=== PATIENT | female | born 1950 | race Caucasian/White ===

== ENCOUNTER 2018-02-07 08:55 | Inpatient (IN) | payer MEDICARE, OTHER ==
[~2018-02-07] VITALS: Ht 157.5 cm; Wt 63.5 kg
--- NOTE | 2018-02-07 08:55 | NUR ---
BIBRA 89, W C/O L ANKLE PAIN, +DEFORMITY S/P FALL, -KO , TO ER BED 10, HOOKED TO MONITOR, AWAITING MD DE LA ROSA
[2018-02-07] MEDS ORDERED: ONDANSETRON HCL/PF 4 MG/2 ML VIAL ONE (09:25)
[2018-02-07] MEDS ORDERED: HYDROMORPHONE 1 MG/1 ML DISP.SYRIN ONE ×2 (09:25→10:22)
[2018-02-07] MEDS ORDERED: HYDROMORPHONE INJ 2 MG/ML DISP.SYRIN IV ONE ×2 (09:30→10:30)
[2018-02-07] MEDS ORDERED: IV NS 0.9% 1,000 ML BAG IV ONE (09:30)
[2018-02-07] MEDS ORDERED: ONDANSETRON HCL/PF 4 MG/2 ML VIAL IVP ONE (09:30)
[2018-02-07 09:36] LABS: BASOPHILS # (AUTO) 0.1 /CMM (0.0-0.2); BASOPHILS % (AUTO) 0.6 % (0.0-2.0); EOSINOPHILS % (AUTO) 1.2 % (0.0-6.0); HEMATOCRIT 44 % (33-45); HEMOGLOBIN 15.2 g/dL (11.5-14.8); LYMPHOCYTES % (AUTO) 5.8 % (20.0-44.0); MEAN CORPUSCULAR HGB CONC 34 g/dl (31.0-36.0); MEAN CORPUSCULAR VOLUME 99 fL (82-100); MONOCYTES # (AUTO) 0.9 /CMM (0.1-1.30); MONOCYTES % (AUTO) 5.6 % (2.0-12.0); NEUTROPHILS # (AUTO) 14.7 /CMM (1.8-8.9); NEUTROPHILS % (AUTO) 86.8 % (43.0-81.0); PLATELET COUNT (AUTO) 304 /CMM (150-450); RED BLOOD CELL COUNT(AUTO) 4.48 MIL/uL (4.0-5.2); WHITE BLOOD COUNT (AUTO) 16.9 K/uL (4.3-11.0)
--- NOTE | 2018-02-07 09:38 | NUR ---
Patient transported for CT via gurney.
[2018-02-07 09:43] LABS: CALCIUM, SERUM 8.2 mg/dL (8.5-10.1); CREATININE 0.7 mg/dL (0.6-1.3)
[2018-02-07] MEDS ORDERED: PROG100C15 PO (09:43)
[2018-02-07] MEDS ORDERED: CLOP75TA15 PO (09:43)
[2018-02-07] MEDS ORDERED: FLUT16SP BNOSTRILS (09:43)
[2018-02-07] MEDS ORDERED: IBUP-1957 PO (09:43)
[2018-02-07] MEDS ORDERED: RANI150T8 PO (09:43)
[2018-02-07] MEDS ORDERED: ALBU18HF2 IH (09:43)
[2018-02-07] MEDS ORDERED: MONT10TA22 PO (09:43)
[2018-02-07] MEDS ORDERED: FLUT1DIS5 IH (09:43)
[2018-02-07] MEDS ORDERED: GABA-534 PO (09:43)
[2018-02-07] MEDS ORDERED: LEVO75TA7 PO (09:43)
[2018-02-07] MEDS ORDERED: OMEP20CA10 PO (09:43)
[2018-02-07] MEDS ORDERED: ACET-868 PO (09:43)
[2018-02-07 09:48] LABS: ALBUMIN 3.2 g/dL (3.4-5.0); BILIRUBIN,DIRECT 0.1 mg/dL (0.0-0.2); BILIRUBIN,TOTAL 0.4 mg/dL (0.2-1.0); TOTAL PROTEIN, SERUM 6.6 g/dL (6.4-8.2)
--- NOTE | 2018-02-07 10:11 | NUR ---
PAGED SCREEN PRINTER HELPER [facility] FOR CONSULT
--- NOTE | 2018-02-07 10:20 | NUR ---
VERBAL ORDER FROM DR RAMOS OF DILAUDID 1MG IV
--- NOTE | 2018-02-07 10:35 | NUR ---
CALLED NURSING SUP, REQUESTED MED SURG BED FOR THIS PATIENT.
--- NOTE | 2018-02-07 10:43 | NUR ---
[facility] FOLLOW UP - OFFICE STATES MD [place].
--- NOTE | 2018-02-07 10:59 | NUR ---
CALLED [facility]- ASTROBIOLOGIST MARILU GIRON WAS PAGED.
--- NOTE | 2018-02-07 11:05 | NUR ---
ADMIT TO ROOM 313-1 DX LEFT ANKLE FRACTURE ADMITTING MARILU GIRON
--- NOTE | 2018-02-07 11:36 | NUR ---
REPORT GIVEN TO TAYE HANNA
[2018-02-07 12:00] VITALS: BP 98/58
--- NOTE | 2018-02-07 12:00 | NUR ---
PT ON THE FLOOR , ADMITTED WITH DX LEFT ANKLE FRACTURE, ADM TO ROOM 313-1. FAMILY AT BEDSIDE. PT AWAKE A/O X4 , ABLE TO MAKE NEEDS KNOWN. NO S/S RESPIRATORY DISTRESS NOTED. VS ARE STABLE AND WNR. IV TO TH RIGHT WRIST 20G. PT ORIENTED TO UNIT AND EDUCATED TO USE CALL LIGHT. SAFETY PRECAUTIONS IN PLACE.
--- NOTE | 2018-02-07 12:30 | NUR ---
RECEIVED ORDERS FROM DR. GIRON.
--- NOTE | 2018-02-07 14:00 | NUR ---
RECEIVED ORDERS FROM : DILAUDID 0.5 Q3H PRN IV; BENADRYL 12.5 IV PRN WITH DILAUDID CARAFATE 1 G PO Q6H
[2018-02-07] MEDS: diphenhydrAMINE HCL 25 MG CAPSULE PO PRN (14:05)
[2018-02-07] MEDS ORDERED: Z GUARD REMEDY 2 OZ OINT TP PRN (15:00)
[2018-02-07] MEDS ORDERED: GABAPENTIN 300 MG CAPSULE PO PRN (15:00)
[2018-02-07] MEDS ORDERED: ACETAMINOPHEN 325 MG TABLET PO PRN (15:00)
[2018-02-07] MEDS ORDERED: FLUTICASONE/SALMETEROL DISKUS IH PRN (15:00)
[2018-02-07] MEDS: HYDROMORPHONE 1 MG/1 ML DISP.SYRIN IV PRN ×2 (15:16→20:10)
[2018-02-07] MEDS: SUCRALFATE 1 G TABLET PO SCH ×2 (15:45→23:48)
[2018-02-07] MEDS ORDERED: LIDOCAINE 1% INJ 50 ML MDV IJ STA (16:00)
--- NOTE | 2018-02-07 16:15 | NUR ---
DR. FONTAINE AT THE BEDSIDE
[2018-02-07] MEDS: FLUTICASONE/VILANTEROL 1 EACH BLST.W.DEV IH SCH (17:00)
--- NOTE | 2018-02-07 17:00 | NUR ---
PT REFUSED F/C INSERTION. AWARE.
[2018-02-07] MEDS: methylPREDNISolone SOD SUCC 125 MG/2ML VIAL IV SCH (17:38)
[2018-02-07] MEDS: diphenhydrAMINE HCL 50 MG/ML VIAL IV PRN (18:38)
--- NOTE | 2018-02-07 19:10 | NUR ---
PT AWAKE A/O X4 , ABLE TO MAKE NEEDS KNOWN. IV TO TH RIGHT WRIST 20G. PT NPO STATUS AFTER MIDNIGHT FOR SURGERY. SAFETY PRECAUTIONS IN PLACE, CALL LIGHT WITHIN REACH. WILL ENDORSE TO NEXT SHIFT FOR KAMARI.
--- NOTE | 2018-02-07 19:30 | NUR ---
MS/RN NOTES RECEIVED PT. LYING IN BED. PT. IS AWAKE, ALERT AND ORIENTED X4. BREATHING EVEN AND UNLABORED ON ROOM AIR. NO SOB, RESPIRATORY DISTRESS NOTED AT THIS TIME. PT. COMPLAINING OF PAIN 8/10 IN HER LEFT ANKLE. WILL ADMINISTER TO PT. PAIN MEDICATION ORDERED. PT. WITH RIGHT FOREARM 20 GAUGE IV SALINE LOCK PRESENT, PATENT AND INTACT. PT. WITH LEFT FOOT DRESSING PRESENT, CLEAN, DRY AND INTACT. PER DAYSHIFT NURSE PT. IS PENDING SURGERY TOMORROW AND WILL BE NPO AFTER MIDNIGHT. PT. WITH FAMILY MEMBERS PRESENT AT BEDSIDE. BED LOCKED AND IN LOWEST POSITION, SIDE RAILS UP X2, CALL LIGHT WITHIN REACH, WILL CONTINUE TO MONITOR.
[2018-02-07 20:00] VITALS: BP 124/62
[2018-02-07] MEDS: IPRATROPIUM NEB FS 0.5 MG/2.5 ML AMPUL.NEB NEB SCH ×2 (20:26→23:30)
[2018-02-07] MEDS: ALBUTEROL FS 2.5 MG/0.5 ML VIAL.NEB NEB SCH ×2 (20:26→23:30)
--- NOTE | 2018-02-07 21:40 | NUR ---
MS/RN NOTES PT. REQUESTING TO GO OUTSIDE AND SMOKE A CIGARETTE. PT. IS VERY ANXIOUS AND ADAMANT ABOUT IT. EDUCATED PT. ON NEGATIVE EFFECTS OF SMOKING AND PT. IS TO HAVE SURGERY TOMORROW. PT. VERBALIZED UNDERSTANDING AND STATED "I HAVE TO GO OUT AND SMOKE. I'LL BE OK". PT. SIGNED SMOKING CONSENT FORM, PLACED IN PT. CHART. PT. WAS BROUGHT OUTSIDE TO SMOKE VIA WHEELCHAIR ACCOMPANIED BY UNLEAVENED DOUGH MIXER AND PT. SON.
[2018-02-07] MEDS: IV NS 0.9% 1,000 ML IV PRN (22:14)
[2018-02-07] MEDS: MONTELUKAST SODIUM (10MG) 10 MG TABLET PO SCH (22:15)
[2018-02-07] MEDS: ZOLPIDEM TARTRATE 5 MG TABLET PO PRN (23:48)
[2018-02-08] MEDS: diphenhydrAMINE HCL 50 MG/ML VIAL IV PRN ×5 (00:21→23:50)
[2018-02-08] MEDS: IPRATROPIUM NEB FS 0.5 MG/2.5 ML AMPUL.NEB NEB SCH ×5 (03:30→20:31)
[2018-02-08] MEDS: ALBUTEROL FS 2.5 MG/0.5 ML VIAL.NEB NEB SCH ×5 (03:30→20:31)
[2018-02-08] MEDS: SUCRALFATE 1 G TABLET PO SCH ×4 (06:00→23:49)
[2018-02-08 06:31] LABS: BASOPHILS % (AUTO) 0.2 % (0.0-2.0); EOSINOPHILS % (AUTO) 0.3 % (0.0-6.0); HEMATOCRIT 37 % (33-45); HEMOGLOBIN 12.5 g/dL (11.5-14.8); LYMPHOCYTES % (AUTO) 7.9 % (20.0-44.0); MEAN CORPUSCULAR HGB CONC 34 g/dl (31.0-36.0); MEAN CORPUSCULAR VOLUME 99 fL (82-100); MONOCYTES # (AUTO) 0.8 /CMM (0.1-1.30); MONOCYTES % (AUTO) 6.8 % (2.0-12.0); NEUTROPHILS # (AUTO) 10.2 /CMM (1.8-8.9); NEUTROPHILS % (AUTO) 84.8 % (43.0-81.0); PLATELET COUNT (AUTO) 244 /CMM (150-450); RED BLOOD CELL COUNT(AUTO) 3.77 MIL/uL (4.0-5.2)
--- NOTE | 2018-02-08 06:45 | NUR ---
MS/RN NOTES PT. IS LYING IN BED RESTING. BREATHING EVEN AND UNLABORED ON ROOM AIR. NO SOB, RESPIRATORY DISTRESS OR COMPLAINTS OF PAIN NOTED AT THIS TIME. PT. WITH RIGHT FOREARM 20 GAUGE IV SALINE LOCK PRESENT, PATENT AND INTACT. PT. REMAINS NPO SINCE MIDNIGHT PENDING LEFT ANKLE SURGERY TODAY. PT. CONSENT SIGNED AND PLACED N CHART. ALL PT. NEEDS MET. BED LOCKED AND IN LOWEST POSITION, SIDE RAILS UP X2, CALL LIGHT WITHIN REACH, WILL ENDORSE TO DAYSHIFT NURSE FOR CONTINUITY OF CARE.
[2018-02-08 06:48] LABS: THYROID STIMULATING HORMONE 0.507 uIU/mL (0.358-3.74)
[2018-02-08 06:50] LABS: ALBUMIN 2.5 g/dL (3.4-5.0); BILIRUBIN,TOTAL 0.2 mg/dL (0.2-1.0); CREATININE 0.8 mg/dL (0.6-1.3); PHOSPHORUS 2.3 mg/dL (2.5-4.9); POTASSIUM 4.1 mmol/L (3.5-5.1); TOTAL PROTEIN, SERUM 5.5 g/dL (6.4-8.2)
[2018-02-08] MEDS: PANTOPRAZOLE 40 MG TABLET.DR PO SCH (07:30)
[2018-02-08] MEDS: LEVOTHYROXINE SODIUM 75 MCG TABLET PO SCH (07:30)
--- NOTE | 2018-02-08 07:36 | NUR ---
RN OPENING NOTES RECEIVED PATIENT IN BED ASLEEP, AROUSES EASILY. A/OX3, ABLE TO MAKE NEEDS KNOWN. NO ACUTE DISTRESS, NO SOB. DENIED PAIN OR DISCOMFORT AT THIS TIME. IV ACCESS INTACT AND PATENT. KEPT PATIENT SAFE AND COMFORTABLE. BED IN LOW/LOCKED POSITION, SIDERAILS UPX2, CALL LIGHT IN REACH. WILL CONTINUE TO MONITOR ACCORDINGLY.
--- NOTE | 2018-02-08 08:00 | NUR ---
RN NOTES REFUSED SKIN ASSESSMENT DUE TO SEVERE PAIN ON LEFT LEG. NO WOUND PER PATIENT
[2018-02-08] MEDS: methylPREDNISolone SOD SUCC 125 MG/2ML VIAL IV SCH ×2 (08:42→17:10)
[2018-02-08] MEDS: FLUTICASONE/VILANTEROL 1 EACH BLST.W.DEV IH SCH (08:48)
[2018-02-08] MEDS: IV NS 0.9% 1,000 ML IV PRN (10:26)
--- NOTE | 2018-02-08 10:30 | NUR ---
DR MARILU GIRON AT [facility] TALKING TO PATIENT.
[2018-02-08] MEDS: HYDROMORPHONE 1 MG/1 ML DISP.SYRIN IV PRN ×2 (10:37→22:31)
[2018-02-08] MEDS ORDERED: IV NS 0.9% 500 ML BAG IV ONE ×2 (12:20→23:00)
--- NOTE | 2018-02-08 12:33 | NUR ---
DR ARAUZ ON BEDSIDE. NOTIFIED BP= 80/55, PULSE 70. NS 500ML IV BOLUS ONE TIME ORDER PER DR ARAUZ. PATIENT ASYMPTOMATIC. WILL MONIOTR ACCORDINGLY.
--- NOTE | 2018-02-08 12:40 | NUR ---
PICKED UP FOR SURGERY BY OR TRANSPORT.
[2018-02-08] MEDS ORDERED: BUPIVACAINE 0.75% DEXT-PF 2 ML AMPUL ONE (13:18)
[2018-02-08] MEDS ORDERED: MIDAZOLAM HCL 2 MG/2ML VIAL ONE (13:18)
[2018-02-08] MEDS ORDERED: FENTANYL PF 100MCG/2ML AMPUL ONE (13:19)
[2018-02-08] MEDS ORDERED: MORPHINE SULFATE/PF 10 MG/10ML (1MG/ML) AMPUL ONE (13:19)
[2018-02-08] MEDS ORDERED: ANESTHESIA TRAY IN PYXIS 1 EA TRAY MC ONE (13:47)
[2018-02-08] MEDS ORDERED: BACITRACIN 50000 UNITS/VIAL ONE (14:08)
[2018-02-08] MEDS ORDERED: BUPIVACAINE MPF 0.75% 30 ML VIAL ONE (14:08)
[2018-02-08] MEDS ORDERED: BUPIVACAINE 0.5 % PF 150 MG/30 ML VIAL ONE (14:11)
[2018-02-08] MEDS ORDERED: K PHOS NEUTRAL 250 MG TABLET PO ONE ×2 (15:00→17:30)
--- NOTE | 2018-02-08 17:00 | NUR ---
CAME BACK FROM SURGERY IN STABLE CONDITION. VSS. WILL MONIOTR ACCORDINGLY.
[2018-02-08 17:05] VITALS: BP 92/60
[2018-02-08 17:30] VITALS: BP 90/55
[2018-02-08 18:30] VITALS: BP 91/53
--- NOTE | 2018-02-08 19:30 | NUR ---
RN CLOSING NOTES PATIENT IN STABLE CONDITION. ALL DUE MEDICATIONS ADMINISTERED ORDERED. ALL NEEDS ATTENDED AND PROVIDED. KEPT PATIENT SAFE AND COMFORTABLE. BED IN LOW/LOCKED POSITION, SIDERAILS UPX2, SEMFOWLERS, CALL LIGHT IN REACH. ENDORSED TO NIGHT RN FOR KAMARI
--- NOTE | 2018-02-08 19:35 | NUR ---
RN OPENING NOTES RECEIVED REPORT FROM DAYSHIFT RN. FOUND Pt AWAKE, RESTING IN BED. FAMILY VISITING AT BEDSIDE. NO S/S OF ACUTE DISTRESS OR SOB NOTED. Pt IS A/OX4, VERBAL, ABLE TO MAKE NEEDS KNOWN. ON TELE MONITOR FOR Q24HR ONLY PER POST-OP ORDER. TELE READING SR 80. IV ACCESS ON RHAND #22G; IVF NS @75ML/HR. SAFETY MEASURES IN PLACE. BED LOW, LOCKED, HOB ELEVATED, SIDE RAILS UP, CALL LIGHT AND BEDSIDE TABLE WITHIN REACH. WILL CONTINUE TO MONITOR Pt's CONDITION AND SAFETY THROUGHOUT THE NIGHT.
[2018-02-08 20:00] VITALS: BP 91/48
--- NOTE | 2018-02-08 20:25 | NUR ---
RN NOTES Pt's BP IS LOW. BP 77/52, HR 64, O2SAT 97%, R 20. Pt IS A/OX4 COMMUNICATING FINE. AFEBRILE. ASYMPTOMATIC. Pt IS C/O 10/10 PAIN ON LEFT FOOT. PAGED STAFF DEVELOPMENT COORDINATOR RN EPIC DR LOUISE TO INFORM HER OF Pt's BP. WAITING FOR CALL BACK.
--- NOTE | 2018-02-08 20:35 | NUR ---
RN NOTES RECEIVED CALL FROM PHARMACY TO INFORM THAT HOSPITAL IS CURRENTLY HAVING AN ANCEF SHORTAGE SO THEY CANNOT GIVE THE ANCEF FOR POST-OP. BUT SINCE Pt IS ALSO RECEIVING VANCO POST-OP, THEY SAID THE VANCO SHOULD BE OK FOR NOW. PHARM SUGGESTED TO CALL THE ONCALL ORTHO TO CLARIFY IF A DIFFERENT IV ABX SHOULD BE GIVEN IN REPLACEMENT OF THE ANCEF, OR IF VANCO WILL SUFFICE FOR NOW. WILL CALL ACUPRESSURIST ORTHO TO CLARIFY.
--- NOTE | 2018-02-08 20:40 | NUR ---
ARTS ADMINISTRATOR ORTHO:
--- NOTE | 2018-02-08 20:41 | NUR ---
RN NOTES CALLED THE [facility] LEADER [facility]THO MONIQUE [facility] TO INFORM THEM OF THE ANCEF SHORTAGE SITUATION. BUT NO ONE ANSWERED. PER BOX ORDER PERSON THEY SAID THEY LEFT MESSAGE TO CALL [facility] BACK.
--- NOTE | 2018-02-08 21:05 | NUR ---
RN NOTES SPOKE WITH PHARMACY ON THE PHONE AGAIN. PHARMACIST SAID THAT THEY CAN ONLY SPARE 2 DOSES OF THE ANCEF 2GM, BUT CANNOT GIVE THE ORDERED 4 DOSES.
[2018-02-08] MEDS ORDERED: HYDROMORPHONE INJ 0.5 MG/0.5 ML SYRINGE IV PRN (21:30)
[2018-02-08] MEDS ORDERED: diphenhydrAMINE HCL 50 MG/ML VIAL IV PRN (21:30)
[2018-02-08] MEDS ORDERED: NALOXONE HCL 0.4 MG/ML AMPUL IV PRN (21:30)
[2018-02-08 22:00] VITALS: BP 91/48
--- NOTE | 2018-02-08 22:05 | NUR ---
RN NOTES RECENT BP INCREASED FROM 77/52 TO 91/48, HR 78, O2 96% ON RA, R 18, T 98.2F. Pt IS ASYMPTOMATIC. PER Pt STATEMENT BASELINE BP AT HOME IS USUALLY IN THE 90s. SPOKE WITH DR LOUISE ON THE PHONE INFORMED OF Pt's LOW BP, BUT INFORMED HER THAT PER Pt STATEMENT Pt's BASELINE IS USUALLY IN THE LOW 90s. SINCE Pt IS ASYMPTOMATIC DR LOUISE SAID IT IS OK TO CONTINUE TO GIVE Pt THE DILAUDID SINCE SHE IS C/O SEVERE 10/10 PAIN S/P SURGERY ON LEFT FOOT. DR LOUISE ORDERED X1 BOLUS OF 500ML NS & ULTRAM 50MG Q8H SCHEDULED FOR BREAKTHROUGH PAIN. WILL CARRY OUT ORDERS.
--- NOTE | 2018-02-08 22:25 | NUR ---
RN NOTES SPOKE WITH CHECK CLERK MARI MASONS ON THE PHONE. INFORMED HIM OF THE ANCEF SHORTAGE SITUATION AT [facility], AND THAT PHARMACY WAS ONLY ABLE TO SPARE 2 DOSES OUT OF THE ORDERED 4 DOSES OF ANCEF 2GM FOR THE Pt. ASKED DARWIN IF THEY WANTED A DIFFERENT ABX TO REPLACE ANCEF, AND HE SAID JUST TO GIVE THE 2 DOSES OF ANCEF FOR NOW AND THAT THEY WILL FOLLOW UP IN THE MORNING FOR ANY CHANGES IN THE ORDER.
[2018-02-08] MEDS: diphenhydrAMINE HCL 25 MG CAPSULE PO PRN (22:31)
[2018-02-08] MEDS: ACETAMINOPHEN 325 MG TABLET PO SCH (22:32)
[2018-02-08] MEDS: MONTELUKAST SODIUM (10MG) 10 MG TABLET PO SCH (22:32)
[2018-02-08] MEDS: CEFAZOLIN 2 GM in IV D5W 50 ML IV SCH (22:32)
[2018-02-08] MEDS ORDERED: VANCOMYCIN 1 GM in IV D5W 250 ML IV ONE (23:00)
--- NOTE | 2018-02-08 23:10 | NUR ---
RN NOTES Pt IS C/O ACID REFLUX AND IS COMPLAINING THAT SHE IS BELCHING TOO MUCH, WHICH IS ALSO CAUSING HER TO HAVE MORE PAIN. SPOKE WITH DR LOUISE AGAIN ON THE PHONE IN REGARDS TO Pt's COMPLAINT ABOUT HER ACID REFLUX. DR LOUISE ORDERED PEPCID 20MG BID SCHEDULED. WILL CARRY OUT ORDERS.
[2018-02-08] MEDS: TRAMADOL HCL 50 MG TABLET PO SCH (23:49)
[2018-02-08] MEDS: FAMOTIDINE (20 MG) 20 MG TABLET PO SCH (23:49)
--- NOTE | 2018-02-09 | NUR ---
RN NOTES ADMINISTERED VANCO 1GM X1 DOSE FOR POST OP.
[2018-02-09] MEDS: IV NS 0.9% 1,000 ML IV PRN ×2 (00:09→09:29)
[2018-02-09] MEDS: ALBUTEROL FS 2.5 MG/0.5 ML VIAL.NEB NEB SCH ×7 (00:14→23:00)
[2018-02-09] MEDS: IPRATROPIUM NEB FS 0.5 MG/2.5 ML AMPUL.NEB NEB SCH ×7 (00:14→23:00)
[2018-02-09] MEDS: diphenhydrAMINE HCL 50 MG/ML VIAL IV PRN ×3 (03:23→10:02)
[2018-02-09] MEDS: ACETAMINOPHEN 325 MG TABLET PO SCH ×2 (03:23→09:03)
[2018-02-09] MEDS: HYDROMORPHONE 1 MG/1 ML DISP.SYRIN IV PRN ×2 (03:25→08:19)
--- NOTE | 2018-02-09 05:50 | NUR ---
RN NOTES URINE SAMPLE COLLECTED. INFORMED LAB.
[2018-02-09] MEDS: CEFAZOLIN 2 GM in IV D5W 50 ML IV SCH ×3 (06:58→21:43)
[2018-02-09] MEDS: SUCRALFATE 1 G TABLET PO SCH ×3 (06:59→17:42)
[2018-02-09 07:00] VITALS: BP 101/62
--- NOTE | 2018-02-09 07:00 | NUR ---
RN CLOSING NOTES NO SIGNIFICANT CHANGES IN Pt's CONDITION. Pt REMAINS STABLE PER BASELINE. NO S/S OF ACUTE DISTRESS OR SOB NOTED DURING THE NIGHT. Pt IS AWAKE IN BED. RESPIRATIONS EVEN AND UNLABORED. Pt HAD FIRST BM THIS AM POST-OP. ALL NEEDS MET AND ATTENDED TO. SAFETY MEASURES IN PLACE. WILL ENDORSE TO DAYSHIFT RN FOR Pt's KAMARI.
[2018-02-09] MEDS: TRAMADOL HCL 50 MG TABLET PO SCH ×2 (07:02→15:00)
[2018-02-09 07:15] LABS: BASOPHILS % (AUTO) 0.2 % (0.0-2.0); HEMATOCRIT 34 % (33-45); HEMOGLOBIN 11.4 g/dL (11.5-14.8); LYMPHOCYTES % (AUTO) 6.3 % (20.0-44.0); MEAN CORPUSCULAR HGB CONC 34 g/dl (31.0-36.0); MEAN CORPUSCULAR VOLUME 100 fL (82-100); MONOCYTES # (AUTO) 1.4 /CMM (0.1-1.30); MONOCYTES % (AUTO) 8.6 % (2.0-12.0); NEUTROPHILS # (AUTO) 13.6 /CMM (1.8-8.9); NEUTROPHILS % (AUTO) 84.9 % (43.0-81.0); PLATELET COUNT (AUTO) 246 /CMM (150-450); RED BLOOD CELL COUNT(AUTO) 3.39 MIL/uL (4.0-5.2); WHITE BLOOD COUNT (AUTO) 16.1 K/uL (4.3-11.0)
[2018-02-09 07:30] LABS: ALBUMIN 2.6 g/dL (3.4-5.0); BILIRUBIN,TOTAL 0.2 mg/dL (0.2-1.0); CALCIUM, SERUM 6.7 mg/dL (8.5-10.1); CREATININE 0.9 mg/dL (0.6-1.3); MAGNESIUM 1.8 mg/dL (1.8-2.4); PHOSPHORUS 2.4 mg/dL (2.5-4.9); POTASSIUM 3.7 mmol/L (3.5-5.1); TOTAL PROTEIN, SERUM 5.5 g/dL (6.4-8.2)
[2018-02-09 07:31] LABS: APPEARANCE,URINE CLEAR (CLEAR); BILIRUBIN,URINE NEGATIVE (NEGATIVE); BLOOD, URINE TRACE Ery/uL (NEGATIVE); COLOR,URINE YELLOW (YELLOW); KETONES,URINE NEGATIVE (NEGATIVE); LEUKOCYTE ESTERASE ,URINE NEGATIVE (NEGATIVE); NITRITE, URINE NEGATIVE (NEGATIVE); PH,URINE 6.5 (5.0-8.0); PROTEIN,URINE NEGATIVE (NEGATIVE); UGLUCOSE NEGATIVE (NEGATIVE); UROBILINOGEN,URINE 0.2 EU/dL (0.2)
--- NOTE | 2018-02-09 07:47 | NUR ---
MS/RN OPENING NOTE PATIENT IN BED IN STABLE CONDITION. A/O X 3. NO SIGNS OF ACUTE DISTRESS. NO COMPLAIN OF PAIN OR DISCOMFORT. ON TELE MONITOR FOR 24HRS S/P LEFT ANKLE OPEN REDUCTION AND INTERNAL FIXATION. TOLERATED WELL. ALL NEEDS ATTENDED TO. CALL LIGHT WITHIN REACH. WILL CONTINUE TO MONITOR TO ENSURE SAFETY.
[2018-02-09 07:53] LABS: BACTERIA,URINE Few /HPF (None Seen); SQUAMOUS EPITHELIAL CELL,UR Few /HPF (None Seen); WBC,URINE 0-2 /HPF (0-3)
[2018-02-09 08:00] VITALS: BP 92/52
[2018-02-09] MEDS: PANTOPRAZOLE 40 MG TABLET.DR PO SCH (08:19)
[2018-02-09] MEDS: LEVOTHYROXINE SODIUM 75 MCG TABLET PO SCH (08:19)
[2018-02-09] MEDS: FLUTICASONE/VILANTEROL 1 EACH BLST.W.DEV IH SCH (09:00)
[2018-02-09] MEDS: methylPREDNISolone SOD SUCC 125 MG/2ML VIAL IV SCH ×2 (09:03→17:00)
[2018-02-09] MEDS: FAMOTIDINE (20 MG) 20 MG TABLET PO SCH ×2 (09:03→16:58)
[2018-02-09] MEDS: CALCIUM CARB 600MG /VIT D 1 EACH TABLET PO SCH ×2 (09:12→16:58)
[2018-02-09] MEDS: FLUTICASONE PROPIONATE 16 GM BOTTLE NS PRN (09:12)
[2018-02-09] MEDS: NEUTRA PHOS 1 POWD.PACKET PO SCH ×2 (09:29→16:58)
[2018-02-09] MEDS: oxyCODONE IR immediate release 5 MG PO PRN (12:31)
[2018-02-09] MEDS: RIVAROXABAN 10 MG TABLET PO SCH (12:32)
--- NOTE | 2018-02-09 12:58 | NUR ---
MS/RN RECEIVED CALL FROM DR FONTAINE AND PER DR FONTAINE PLEASE ORDER TALL AIR CAST BOOT FOR PATIENT AND LEAVE AT BEDSIDE, HE WILL COME TOMORROW AND DO DRESSING CHANGE AND WILL PUT THE BOOT ON THE PATIENT. CALLED [facility]THO GROUP AND REQUEST FOR THE ORDER TO BE DELIVERED TODAY. SPOKE WITH SHAMIKA AND PATIENT INFORMATION PROVIDED. PATIENT MADE AWARE
[2018-02-09] MEDS: diphenhydrAMINE HCL 25 MG CAPSULE PO PRN (13:21)
--- NOTE | 2018-02-09 15:01 | NUR ---
MS/RN RECEIVED CALL FROM CHIP FROM [facility] AND PER CHIP THEY DON'T CARRY TALL AIR CAST BOOT BUT INSTEAD HAVE PNEUMATIC TALL CAMWALKER WALKING BOOT AND HAS SAME FUNCTION. SPOKE WITH DR FONTAINE AND MADE AWARE PER DR MINAL NEW TO HAVE PNEUMATIC TALL CAMWALKER INSTEAD. CHIP MADE AWARE AND PER CHIP, HE WILL DELIVER THE BOOT TODAY.
--- NOTE | 2018-02-09 15:28 | NUR ---
MS/RN SPOKE WITH DR FONTAINE AND MADE AWARE PATIENT'S ALLERGIC REACTION TO TYLENOL AND DILAUDID, ULTRAM BESIDES GIVING BENADRYL IV AND PO. STILL NOTED WITH REDNESS, HOT FLASHES, COMPLAIN OF DIZZINESS, SOB AND DIFFICULTY SWALLOWING WHEN EATING SOMETHING. PER DR FONTAINE PLEASE CALL HOSPITALIST AND NOTIFY THEM.
[2018-02-09] MEDS ORDERED: IV NS 0.9% 250 ML BAG IV ONE ×2 (15:30→17:00)
--- NOTE | 2018-02-09 15:32 | NUR ---
MS/RN SPOKE WITH DR MARILU GIRON AND NOTIFY PATIENT'S ALLERGIC REACTION TO TYLENOL AND DILAUDID, ULTRAM BESIDES GIVING BENADRYL IV AND PO. STILL NOTED WITH REDNESS, HOT FLASHES, COMPLAIN OF DIZZINESS, SOB AND DIFFICULTY SWALLOWING WHEN EATING SOMETHING. ALSO NOTED WITH LOW BP OF 82/50, 76. PER DR GIRON STOP ALL PAIN MEDICATION AND START MORPHINE 4MG IV Q 3 HR PRN. GIVE IV NS 250ML BOLUS X 1 NOW. PATIENT MADE AWARE.
[2018-02-09 16:00] VITALS: BP 83/49
[2018-02-09] MEDS ORDERED: IV NS 0.9% 250 ML IV ONE (16:00)
--- NOTE | 2018-02-09 16:45 | NUR ---
MS/RN SEEN AND EXAMINED BY DR MARILU GIRON. DR MARILU GIRON NOTED PATIENT BP 92/50 AT THIS TIME, POST IV BOLUS OF NS 250ML. PER DR MARILU GIRON PLEASE GIVE ANOTHER IV BOLUS 250ML X 1 AND GIVE SOLU-MEDROL 1254MG IV PUSH X 1 NOW. HOLD SCHEDULE SOLUMEDROL 60MG FOR 5PM.
[2018-02-09] MEDS ORDERED: methylPREDNISolone SOD SUCC 125 MG/2ML VIAL IV ONE (17:00)
--- NOTE | 2018-02-09 17:00 | NUR ---
MS/RN PNEUMATIC TALL CAMWALKER BOOT DELIVERED AND IS IN PATIENT'S ROOM. DR FONTAINE WILL DO DRESSING CHANGE TOMORROW AND WILL PUT THE BOOT ON.
--- NOTE | 2018-02-09 17:00 | NUR ---
MS/RN SPOKE WITH MARILU GIRON AND NOTIFY PER PHARM PATIENT ALLERGIC TO HYDROCODONE AND MIGHT HAVE REACTION FROM MORPHINE PER MARILU GIRON OKAY TO GIVE MORPHINE. PHARMACIST MARILU MADE AWARE.
--- NOTE | 2018-02-09 17:30 | NUR ---
MS/RN S/P IV BOLUS BP 92/55.
--- NOTE | 2018-02-09 18:32 | NUR ---
MS/RN ACCORDING TO PATIENT, SHE TAKES DAILY DULCOLAX SOFT GEL AT HOME. LAST TAKEN ON SUNDAY NIGHT AND HER BOWEL PATTERN IS 2 TO 3 TIMES A DAY LOOSE GREENISH COLOR STOOL. DR MARILU GIRON AWARE WITH ORDERS TO RORY ROLON STOOL Addendum: 02/09/18 at 1837 by JERRY CALDWELL RN Amended: Links added.
--- NOTE | 2018-02-09 18:41 | NUR ---
MS/RN SPOKE WITH DR MARILU GIRON AND NOTIFY PATIENT'S CONDITION OF DIFFICULTY SWALLOWING MEDICATION AND PATIENT COMPLAINING IT GET STUCK ABOVE HER EPIGASTRIC AREA, ALSO ANY THING SHE TAKES P.O. SHE FEELS LIKE IT GET STUCK ABOVE EPIGASTRIC AREA. ALSO MADE AWARE REGARDING BP STILL NOTED 92/55 POST IV NS BOLUS AND NS RUNNING AT 75MLS/HR. A/O X 4. NO SIGNS OF ACUTE DISTRESS. PER DR MARILU GIRON JUST TO KEEP MONITORING THE PATIENT AT THIS TIME. IF SHE REFUSE TO TAKE PO MEDS OR REFUSE PO INTAKE PLEASE DOCUMENT AND CONTINUE TO MONITOR WILL ENDORSE TO NEXT SHIFT FOR CONTINUITY OF CARE.
--- NOTE | 2018-02-09 19:40 | NUR ---
RN OPENING NOTES RECEIVED REPORT FROM DAYSORFT JACQUES EDWARDS. FOUND Pt AWAKE, RESTING IN BED. FAMILY VISITING AT BEDSIDE. NO S/S OF ACUTE DISTRESS OR SEVERE SOB NOTED. Pt IS A/OX4, VERBAL, ABLE TO MAKE NEEDS KNOWN. IV ACCESS ON RHAND #22G; IVF NS @75ML/HR. SAFETY MEASURES IN PLACE. BED LOW, LOCKED, HOB ELEVATED, SIDE RAILS UP, CALL LIGHT AND BEDSIDE TABLE WITHIN REACH. WILL CONTINUE TO MONITOR Pt's CONDITION AND SAFETY THROUGHOUT THE NIGHT.
[2018-02-09] MEDS: MONTELUKAST SODIUM (10MG) 10 MG TABLET PO SCH (21:43)
[2018-02-09] MEDS: ONDANSETRON HCL/PF 4 MG/2 ML VIAL IVP PRN (21:43)
[2018-02-09] MEDS: MORPHINE SULFATE INJ 4 MG/ML DISP.SYRIN IV PRN (21:44)
[2018-02-09 21:54] VITALS: BP 101/62
--- NOTE | 2018-02-09 22:00 | NUR ---
RN NOTES IV ACCESS ON RHAND BECAME DISLODGED WHILE Pt WAS TRYING TO GO TO THE [facility]. INSERTED NEW IV ACCESS ON LFA #22G.
--- NOTE | 2018-02-09 22:05 | NUR ---
RN NOTES DVT PUMP PLACED ON RT LEG ONLY.
[2018-02-10] MEDS: SUCRALFATE 1 G TABLET PO SCH ×5 (01:57→23:31)
[2018-02-10] MEDS: IPRATROPIUM NEB FS 0.5 MG/2.5 ML AMPUL.NEB NEB SCH ×6 (03:30→23:42)
[2018-02-10] MEDS: ALBUTEROL FS 2.5 MG/0.5 ML VIAL.NEB NEB SCH ×6 (03:30→23:42)
[2018-02-10] MEDS: IV NS 0.9% 1,000 ML IV PRN (05:51)
--- NOTE | 2018-02-10 06:49 | NUR ---
RN CLOSING NOTES NO SIGNIFICANT CHANGES IN Pt's CONDITION. Pt REMAINS STABLE PER BASELINE. Pt IS AWAKE, RESTING IN BED. DRINKING COFFEE. NO S/S OF ACUTE DISTRESS OR SOB NOTED. RESPIRATIONS EVEN AND UNLABORED. ALL NEEDS MET AND ATTENDED TO. SAFETY MEASURES IN PLACE. WILL ENDORSE TO DAYSHIFT RN FOR Pt's KAMARI.
[2018-02-10 06:51] LABS: BASOPHILS % (AUTO) 0.1 % (0.0-2.0); EOSINOPHILS % (AUTO) 0.1 % (0.0-6.0); HEMATOCRIT 33 % (33-45); HEMOGLOBIN 11.1 g/dL (11.5-14.8); LYMPHOCYTES # (AUTO) 1.1 /CMM (0.8-4.8); LYMPHOCYTES % (AUTO) 7.1 % (20.0-44.0); MEAN CORPUSCULAR HGB CONC 34 g/dl (31.0-36.0); MEAN CORPUSCULAR VOLUME 100 fL (82-100); MONOCYTES # (AUTO) 1.2 /CMM (0.1-1.30); MONOCYTES % (AUTO) 8.1 % (2.0-12.0); NEUTROPHILS # (AUTO) 12.6 /CMM (1.8-8.9); NEUTROPHILS % (AUTO) 84.6 % (43.0-81.0); PLATELET COUNT (AUTO) 239 /CMM (150-450); RED BLOOD CELL COUNT(AUTO) 3.32 MIL/uL (4.0-5.2); WHITE BLOOD COUNT (AUTO) 14.9 K/uL (4.3-11.0)
--- NOTE | 2018-02-10 07:00 | NUR ---
RN NOTES CURRENT BP 104/71, HR 71, R 18, O2 96% ON RA
[2018-02-10 07:05] LABS: CALCIUM, SERUM 7.3 mg/dL (8.5-10.1); CREATININE 0.7 mg/dL (0.6-1.3); POTASSIUM 3.6 mmol/L (3.5-5.1)
[2018-02-10] MEDS: PANTOPRAZOLE 40 MG TABLET.DR PO SCH (07:09)
[2018-02-10] MEDS: LEVOTHYROXINE SODIUM 75 MCG TABLET PO SCH (07:09)
--- NOTE | 2018-02-10 07:40 | NUR ---
MS RN OPENING NOTES RECEIVED PT LAYING IN BED. PT IS A/O X4, AFEBRILE. RESPIRATIONS ARE EVEN AND UNLABORED, NOT IN ANY ACUTE DISTRESS NOTED. PT DENIES C/O HEADACHE BUT IS TOLERABLE, NO C/O SOB, N/V. IV SITE IS INTACT TO LFA, NO INFILTRATION NOTED. DRESSING KEPT CLEAN AND DRY. SAFETY MEASURES ARE IN PLACE. INSTRUCTED PT TO USE CALL LIGHT WHEN ASSISTANCE IS NEEDED, CALL LIGHT IS LEFT WITHIN REACH. WILL CONTINUE TO MONITOR THROUGHOUT SHIFT FOR CONTINUITY OF CARE.
[2018-02-10 08:00] VITALS: BP 106/66
[2018-02-10] MEDS: FAMOTIDINE (20 MG) 20 MG TABLET PO SCH ×2 (08:20→17:11)
[2018-02-10] MEDS: CALCIUM CARB 600MG /VIT D 1 EACH TABLET PO SCH ×2 (08:20→17:11)
[2018-02-10] MEDS: ONDANSETRON HCL/PF 4 MG/2 ML VIAL IVP PRN (08:21)
[2018-02-10] MEDS: methylPREDNISolone SOD SUCC 125 MG/2ML VIAL IV SCH ×2 (08:21→17:11)
[2018-02-10] MEDS: MORPHINE SULFATE INJ 4 MG/ML DISP.SYRIN IV PRN ×3 (08:21→19:57)
[2018-02-10] MEDS: FLUTICASONE PROPIONATE 16 GM BOTTLE NS PRN (09:07)
[2018-02-10] MEDS: diphenhydrAMINE HCL 50 MG/ML VIAL IV PRN (10:10)
[2018-02-10] MEDS: FLUTICASONE/VILANTEROL 1 EACH BLST.W.DEV IH SCH (10:10)
[2018-02-10] MEDS ORDERED: MENTHOL/CETYLPYRD (CEPACOL) 1 LOZ LOZENGE PO PRN ×2 (11:00→11:30)
[2018-02-10] MEDS: RIVAROXABAN 10 MG TABLET PO SCH (12:08)
--- NOTE | 2018-02-10 12:30 | NUR ---
MS RN NOTES-- PER DR. FONTAINE, WILL CHANGE DRESSING AND APPLY TALL BOOT ON SUNDAY.
[2018-02-10 16:00] VITALS: BP 113/62
--- NOTE | 2018-02-10 18:35 | NUR ---
MS RN CLOSING NOTES ALL DUE MEDS GIVEN, NEEDS MET AND RENDERED. PT REMAINS A/O X4, AFEBRILE RESPIRATIONS ARE EVEN AND UNLABORED, NOT IN ANY ACUTE DISTRESS NOTED. DENIES ANY CHEST PAIN, SOB,N/V. IV SITE TO RFA INTACT, NO INFILTRATION NOTED. DRESSING KEPT CLEAN AND DRY. SAFETY MEASURES ARE IN PLACE. BED IS IN ITS LOCKED AND LOWEST POSITION. REMINDED PT TO USE CALL LIGHT WHEN ASSISTANCE IS NEEDED, CALL LIGHT IS LEFT WITHIN REACH. WILL ENDORSE TO NEXT SHIFT FOR CONTINUITY OF CARE.
[2018-02-10 20:00] VITALS: BP 121/56
--- NOTE | 2018-02-10 20:00 | NUR ---
MS/RN OPENING NOTES RECEIVED PATIENT IN BED, AWAKE, ALERT, WITH GOOD EYE CONTACT ABLE TO VERBALIZE NEEDS, REPORTED PAIN IN LEFT LEG AND ABDOMEN, HAD BM YESTERDAY,OBSERVE BLOATED ABDOMEN, DID NOT PASS GAS, UPSET WITH A ROOM MATE AND REPORTED WANT TO HAVE PRIVATE ROOM, CHARGE NURSE MADE AWARE. WILL MONITOR., PAIN OF 10/10, MORPHINE GIVEN TO RELIEVE PAIN, WILL FOLLOW UP FOR PAIN RELIEF.
--- NOTE | 2018-02-10 21:00 | NUR ---
MS/RN NOTES MD WAS INFORMED ABOUT ABDOMINAL PAIN, BLOATED, GUARDING DISTENDED, WITH ORDER FOR MAALOX TO PASS GAS. PATIENT ABLE TO URINATE, XANAX WAS ALSO ORDERED PRN, PATIETN REFUSED XANAX . COMFORT MEASURES PROVIDED. ORDERS CARRIED OUT.
--- NOTE | 2018-02-10 21:08 | NUR ---
MS/RN NOTES MD LOUISE CONTACTED FOR PATIENT CONCERN, ABDOMINAL PAIN , ABDOMEN DISTENDED, AND LEFT LEG PAIN,LAST PAIN MEDICATION GIVEN 30 MINUTES AGO PAIN AT 8/10 AFTER GIVEN MORPHINE, AWAITING FOR MD CALL BACK.
[2018-02-10] MEDS ORDERED: ALPRAZOLAM 0.25 MG TABLET PO PRN (22:00)
[2018-02-10] MEDS ORDERED: MAG HYDROX/AL HYDROX/SIMETH 30 ML UDC PO PRN (22:00)
[2018-02-10] MEDS: MAG HYDROX/AL HYDROX/SIMETH 30 ML UDC PO PRN (22:00)
--- NOTE | 2018-02-10 22:07 | NUR ---
MS/RN NOTES PATIENT REQUESTED MEDICATION FOR SLEEP WILL MONITOR.
[2018-02-10] MEDS: MONTELUKAST SODIUM (10MG) 10 MG TABLET PO SCH (22:11)
[2018-02-10] MEDS: ZOLPIDEM TARTRATE 5 MG TABLET PO PRN (22:11)
[2018-02-11] MEDS: MORPHINE SULFATE INJ 4 MG/ML DISP.SYRIN IV PRN (01:42)
--- NOTE | 2018-02-11 01:49 | NUR ---
MS/RN NOTES PATIENT AWAKEN FROM SLEEP, REPORTED PAIN IN LEFT LEG, ALERT, ORIENTED X3, VITAL SIGNS CHECK BEFORE ADMINISTERING MORPHINE, PROVIDED FLUIDS. SBP IN 100/55. WILL MONITOR PAIN EFFECTIVENESS.
[2018-02-11] MEDS: diphenhydrAMINE HCL 50 MG/ML VIAL IV PRN ×3 (02:35→14:35)
--- NOTE | 2018-02-11 02:40 | NUR ---
ms/rn notes PATIENT REQUESTED FOR BENADRYL FOR ITCH ON SKIN, MONITOR FOR RELIEF
[2018-02-11] MEDS: IPRATROPIUM NEB FS 0.5 MG/2.5 ML AMPUL.NEB NEB SCH ×4 (02:50→16:03)
[2018-02-11] MEDS: ALBUTEROL FS 2.5 MG/0.5 ML VIAL.NEB NEB SCH ×4 (02:50→16:03)
[2018-02-11] MEDS: SUCRALFATE 1 G TABLET PO SCH ×2 (06:31→12:09)
--- NOTE | 2018-02-11 06:44 | NUR ---
326-1 MS/RN NOTES PATIENT ALERT, ORIENTED X3 ABLE TO VERBALIZE NEEDS AT ALL TIMES, ATTENDED TO NEEDS, MONITORED AND PAIN MANAGED, RESPIRATIONS EVEN AND UNLABORED, SLEPT INTERMITENTLY, CALL LIGHTS WITHIN REACH, WILL ENFORSER TO AM RN FOR KAMARI.
--- NOTE | 2018-02-11 07:42 | NUR ---
MS RN OPENING NOTES RECEIVED PT LAYING IN BED. PT IS A/O X4, AFEBRILE. RESPIRATIONS ARE EVEN AND UNLABORED, NOT IN ANY ACUTE DISTRESS NOTED. NO C/O CHEST PAIN, SOB, N/V. IV SITE IS INTACT TO L HAND, NO INFILTRATION NOTED. DRESSING KEPT CLEAN AND DRY. SAFETY MEASURES ARE IN PLACE. INSTRUCTED PT TO USE CALL LIGHT WHEN ASSISTANCE IS NEEDED, CALL LIGHT IS LEFT WITHIN REACH. WILL CONTINUE TO MONITOR THROUGHOUT SHIFT FOR CONTINUITY OF CARE.
[2018-02-11] MEDS: PANTOPRAZOLE 40 MG TABLET.DR PO SCH (07:47)
[2018-02-11] MEDS: LEVOTHYROXINE SODIUM 75 MCG TABLET PO SCH (07:47)
[2018-02-11 07:48] LABS: BASOPHILS # (AUTO) 0.1 /CMM (0.0-0.2); BASOPHILS % (AUTO) 0.4 % (0.0-2.0); EOSINOPHILS % (AUTO) 0.1 % (0.0-6.0); HEMATOCRIT 33 % (33-45); LYMPHOCYTES # (AUTO) 1.9 /CMM (0.8-4.8); LYMPHOCYTES % (AUTO) 12.6 % (20.0-44.0); MEAN CORPUSCULAR HGB CONC 33 g/dl (31.0-36.0); MEAN CORPUSCULAR VOLUME 99 fL (82-100); MONOCYTES # (AUTO) 1.4 /CMM (0.1-1.30); MONOCYTES % (AUTO) 9.3 % (2.0-12.0); NEUTROPHILS # (AUTO) 11.4 /CMM (1.8-8.9); NEUTROPHILS % (AUTO) 77.6 % (43.0-81.0); PLATELET COUNT (AUTO) 252 /CMM (150-450); RED BLOOD CELL COUNT(AUTO) 3.32 MIL/uL (4.0-5.2); WHITE BLOOD COUNT (AUTO) 14.7 K/uL (4.3-11.0)
[2018-02-11 08:00] VITALS: BP 130/79
[2018-02-11 08:02] LABS: CREATININE 0.7 mg/dL (0.6-1.3); MAGNESIUM 2.3 mg/dL (1.8-2.4); PHOSPHORUS 2.4 mg/dL (2.5-4.9); POTASSIUM 3.8 mmol/L (3.5-5.1)
--- NOTE | 2018-02-11 08:15 | NUR ---
MS RN NOTES-- PT SEEN AND EXAMINED BY DR. NICOLE AND STATED THAT PT NEEDS A SIZE MEDIUM BOOT AND NOT A SMALL. PER DR. NICOLE, TO CALL HIM WHEN PT HAS THE BOOT.
[2018-02-11] MEDS: CALCIUM CARB 600MG /VIT D 1 EACH TABLET PO SCH (09:01)
[2018-02-11] MEDS: FLUTICASONE/VILANTEROL 1 EACH BLST.W.DEV IH SCH (09:01)
[2018-02-11] MEDS: FAMOTIDINE (20 MG) 20 MG TABLET PO SCH (09:01)
[2018-02-11] MEDS: methylPREDNISolone SOD SUCC 125 MG/2ML VIAL IV SCH (09:02)
[2018-02-11] MEDS: MAG HYDROX/AL HYDROX/SIMETH 30 ML UDC PO PRN (09:33)
--- NOTE | 2018-02-11 09:45 | NUR ---
MS RN NOTES-- PT SEEN AND EXAMINED BY DR. ARAUZ WITH ORDERS FOR STAT KUB. READ BACK AND VERIFIED. ORDER NOTED AND CARRIED OUT.
[2018-02-11] MEDS: oxyCODONE IR immediate release 5 MG PO PRN (10:14)
--- NOTE | 2018-02-11 10:40 | NUR ---
MS RN NOTES-- DR. NICOLE MADE AWARE OF PT HAVING SIZE MEDIUM BOOT.
[2018-02-11] MEDS ORDERED: BISACODYL SUPP (10 MG) 10 MG/SUPP.RECT SUPP.RECT RC PRN (11:00)
[2018-02-11] MEDS ORDERED: MAGNESIUM HYDROXIDE 30 ML UDC PO PRN (11:00)
[2018-02-11] MEDS ORDERED: GUAIFENESIN LA 600 MG TABLET.SA PO SCH (11:30)
[2018-02-11] MEDS: RIVAROXABAN 10 MG TABLET PO SCH (12:10)
[2018-02-11] MEDS ORDERED: MAGNESIUM CITRATE 296 ML BOTTLE PO ONE (13:00)
[2018-02-11] MEDS ORDERED: NEUTRA PHOS 1 POWD.PACKET PO ONE (15:00)
--- NOTE | 2018-02-11 17:00 | NUR ---
MS RADIOLOGIC TECHNOLOGIST CHIEF NOTE PT DISCHARGED TO [facility] IN STABLE CONDITION ACCOMPANIED BY 2 EMT PERSONNEL VIA [facility]. PT IS A/O X4, AFEBRILE. RESPIRATIONS ARE EVEN AND UNLABORED, NOT IN ANY ACUTE DISTRESS NOTED. PUPILS ARE REACTIVE TO LIGHT, BILATERAL HAND STENCILER ARE STRONG AND EQUAL. CIRCULATION CHECKS TO LEFT TOES. PT DENIES ANY PAIN AT THIS TIME, NO C/O SOB, N/V. ABDOMEN IS SOFT AND NONDISTENDED. BOWEL SOUNDS ARE PRESENT IN ALL 4 QUADRANTS UPON AUSCULTATION. DENIES ANY BLADDER DISCOMFORT. IV SITE REMOVED, APPLIED PRESSURE AND TOLERATED WELL. ID BANDS REMOVED. DRESSING CHANGE DONE TO LLE, KEPT CLEAN AND DRY. BOOT APPLIED TO LLE. EXPLAINED DISCHARGE PAPERWORK TO PT WITH VERBAL AND WRITTEN UNDERSTANDING. GAVE REPORT TO JACQUES COREAS AT [facility]. BEDSIDE ENDORSEMENT GIVEN TO EMT PERSONNEL. ALL BELONGINGS GIVEN TO PT. PT LEFT IN STABLE CONDITION.
[2018-02-12] MEDS ORDERED: methylPREDNISolone SOD SUCC 125 MG/2ML VIAL IV SCH (09:00)
[2018-02-12] MEDS ORDERED: RIVA10TA PO (16:45)
[2018-02-12] MEDS ORDERED: METH4TAB16 PO (16:45)
[2018-02-12] MEDS ORDERED: PANT40TA4 PO (16:45)
== END 2018-02-11 17:00 | DRG 493 ==
LOC: ER 08:57 → MED 11:28
PROVIDERS: ADMIT Nurse Practitioner Acute Care; ATTEND Nurse Practitioner Acute Care
PROC: 0QSH04Z Reposition Left Tibia with Internal Fixation Device, Open Approach (ICD-10-PCS; 2018-02-08)
PROC: 0QSK04Z Reposition Left Fibula with Internal Fixation Device, Open Approach (ICD-10-PCS; principal; 2018-02-08 13:00)
DX: S82.842A Displaced bimalleolar fracture of left lower leg, initial encounter for closed fracture (principal); J44.0 Chronic obstructive pulmonary disease with (acute) lower respiratory infection; D68.59 Other primary thrombophilia; G90.8 Other disorders of autonomic nervous system; W01.0XXA Fall on same level from slipping, tripping and stumbling without subsequent striking against object, initial encounter; Y92.009 Unspecified place in unspecified non-institutional (private) residence as the place of occurrence of the external cause; J44.9 Chronic obstructive pulmonary disease, unspecified; K21.9 Gastro-esophageal reflux disease without esophagitis; J20.9 Acute bronchitis, unspecified; M19.90 Unspecified osteoarthritis, unspecified site; Z88.6 Allergy status to analgesic agent; Z88.5 Allergy status to narcotic agent; Z79.899 Other long term (current) drug therapy; E03.9 Hypothyroidism, unspecified; K59.00 Constipation, unspecified; F17.200 Nicotine dependence, unspecified, uncomplicated; Z90.49 Acquired absence of other specified parts of digestive tract
CPT/HCPCS: 36415; 70450-TC; 71045-TC; 73610-TC; 73630-TC; 74018; 80048-TC; 80053-TC; 80061-TC; 80076-TC; 81000-TC; 83735-TC; 84100-TC; 84443-TC; 84484-TC; 85025-TC; 85730-TC; 87081-TC; 93307-TC; 93880-TC; 97110-TC; 97530-TC; A4606; A6402; C1713; G0378; J0690; J1100; J1170; J1200; J2250; J2270; J2274; J2405; J2930; J3010; J3370; J3490; J7030; J7040; J7050; J7060; Q0163; Z7610

== ENCOUNTER 2018-02-12 08:34 | Inpatient (IN) | payer MEDICARE, OTHER ==
[~2018-02-12] VITALS: Ht 162.6 cm; Wt 66.2 kg
[~2018-02-12 08:34] MED LIST: ACET-868 PO; ALBU18HF2 IH; CLOP75TA15 PO; FLUT16SP BNOSTRILS; FLUT1DIS5 IH; GABA-534 PO; IBUP-1957 PO; LEVO75TA7 PO; MONT10TA22 PO; OMEP20CA10 PO; PROG100C15 PO; RANI150T8 PO
--- NOTE | 2018-02-12 08:51 | NUR ---
PT BROUGHT INTO EMERGENCY ROOM FOR CONSTIPATION AND LEFT ANKLE SURGERY YESTERDAY PT HAS LEFT ANKLE WRAPPED WITH HOLLAND BANDAGE EVALUATED BY MD PT ALERT WITH ORIENTATION X 4 WILL CONTINUE TO MONITOR.
[2018-02-12] MEDS ORDERED: IV NS 0.9% 500 ML BAG IV ONE (09:00)
[2018-02-12] MEDS ORDERED: MORPHINE SULFATE INJ 2 MG/ML DISP.SYRIN IV ONE (09:00)
[2018-02-12] MEDS ORDERED: IV NS 0.9% 1,000 ML BAG IV ONE (09:00)
[2018-02-12] MEDS ORDERED: MORPHINE SULFATE INJ 4 MG/ML DISP.SYRIN ONE (09:16)
[2018-02-12 09:23] LABS: BASOPHILS % (AUTO) 0.1 % (0.0-2.0); EOSINOPHILS % (AUTO) 1.5 % (0.0-6.0); HEMATOCRIT 35 % (33-45); HEMOGLOBIN 12.2 g/dL (11.5-14.8); LYMPHOCYTES # (AUTO) 1.7 /CMM (0.8-4.8); LYMPHOCYTES % (AUTO) 11.5 % (20.0-44.0); MEAN CORPUSCULAR HGB CONC 35 g/dl (31.0-36.0); MEAN CORPUSCULAR VOLUME 98 fL (82-100); MONOCYTES # (AUTO) 1.3 /CMM (0.1-1.30); MONOCYTES % (AUTO) 8.7 % (2.0-12.0); NEUTROPHILS # (AUTO) 11.6 /CMM (1.8-8.9); NEUTROPHILS % (AUTO) 78.2 % (43.0-81.0); PLATELET COUNT (AUTO) 284 /CMM (150-450); RED BLOOD CELL COUNT(AUTO) 3.61 MIL/uL (4.0-5.2); WHITE BLOOD COUNT (AUTO) 14.8 K/uL (4.3-11.0)
[2018-02-12 09:32] LABS: LYMPHOCYTES % (MANUAL) 14 % (16-48); MONOCYTES % (MANUAL) 6 % (0-11.0); NEUTROPHILS % (MANUAL) 80 (42-76)
[2018-02-12 09:34] LABS: CALCIUM, SERUM 8.3 mg/dL (8.5-10.1); CREATININE 0.7 mg/dL (0.6-1.3); POTASSIUM 3.5 mmol/L (3.5-5.1)
[2018-02-12 09:40] LABS: ALBUMIN 2.6 g/dL (3.4-5.0); BILIRUBIN,DIRECT 0.1 mg/dL (0.0-0.2); BILIRUBIN,TOTAL 0.5 mg/dL (0.2-1.0); TOTAL PROTEIN, SERUM 5.6 g/dL (6.4-8.2)
[2018-02-12] MEDS ORDERED: SENNOSIDES 8.6 MG TABLET PO STA (09:51)
[2018-02-12] MEDS ORDERED: NA PHOS,M-B/NA PHOS,DI-BA 1 EA ENEMA RC ONE ×3 (10:00→12:18)
[2018-02-12 10:14] LABS: APPEARANCE,URINE Clear (CLEAR); BILIRUBIN,URINE Negative (NEGATIVE); BLOOD, URINE Trace-intact Ery/uL (NEGATIVE); COLOR,URINE Yellow (YELLOW); KETONES,URINE Negative (NEGATIVE); LEUKOCYTE ESTERASE ,URINE Negative (NEGATIVE); NITRITE, URINE Negative (NEGATIVE); PROTEIN,URINE Negative (NEGATIVE); UGLUCOSE Negative (NEGATIVE); UROBILINOGEN,URINE 0.2 EU/dL (0.2)
[2018-02-12 10:27] LABS: BACTERIA,URINE Few /HPF (None Seen); SQUAMOUS EPITHELIAL CELL,UR Rare /HPF (None Seen); WBC,URINE 0-2 /HPF (0-3)
[2018-02-12] MEDS ORDERED: METOCLOPRAMIDE HCL 10 MG TABLET PO ONE (11:30)
[2018-02-12] MEDS ORDERED: MINERAL OIL 133 ML (PYXIS) 1 EA ENEMA RC ONE (11:30)
[2018-02-12] MEDS ORDERED: METOCLOPRAMIDE HCL 10 MG/2 ML VIAL ONE (11:47)
--- NOTE | 2018-02-12 13:23 | NUR ---
PT HAD POSITIVE RESPONSE TO SECOND FLEETS ENEMA WITH LARGE BROWN STOOL PT CLEANED UP LINEN CHANGED PENDING TRANSFER.
--- NOTE | 2018-02-12 14:19 | NUR ---
FLUIDS COMPLTE GIVEN JUICE
[2018-02-12] MEDS ORDERED: HYDROMORPHONE 1 MG/1 ML DISP.SYRIN IV PRN (14:30)
[2018-02-12] MEDS ORDERED: ONDANSETRON HCL/PF 4 MG/2 ML VIAL IVP PRN (14:30)
--- NOTE | 2018-02-12 15:51 | NUR ---
CALLED NURSING CABLE DISPATCHER AND REQUESTED A MED SURG BED FOR THIS PT.
[2018-02-12] MEDS ORDERED: PANT40TA4 PO (16:45)
[2018-02-12] MEDS ORDERED: RIVA10TA PO (16:45)
[2018-02-12] MEDS ORDERED: METH4TAB16 PO (16:45)
--- NOTE | 2018-02-12 16:51 | NUR ---
PT IS ASSIGNED TO MED SURG RM#: [id number], DX: INTRACTABLE RIGHT LOWER EXTREMITY PAIN, AND ACCEPTING: PATRICIA LEAVITT NP
--- NOTE | 2018-02-12 17:08 | NUR ---
pt had thrid bowl movement large bed cleaned
--- NOTE | 2018-02-12 17:29 | NUR ---
REPORT GIVEN TO GLEN ON APPLE PT ADMITTED TO ROOM 103 MED/SURG ADMITTING MD GOMEZ. TOTAL URINE OUTPUT 1100 ZEROD BEFORE GOING TO ROOM
--- NOTE | 2018-02-12 17:30 | NUR ---
RN NOTES RECEIVED ENDORSEMENT FROM FERMIN HANNA, FOR A PATIENT COMING IN DUE INTRACTABLE LEG PAIN WITH MED SURG ACUITY UNDER THE SERVICE OF PATRICIA LEAVITT NP. ROOM PREPARED. AWAITING PATIENT'S ARRIVAL
--- NOTE | 2018-02-12 17:35 | NUR ---
RN NOTES RECEIVED PATIENT FROM ER. PT AWAKE A/OX4.VERBALLY RESPONSIVE. ORIENTED TO ROOM; FAMILY AT BEDSIDE. PT ON ROOM AIR TOLERATING. NO SIGN OF DISTRESS NOTED AT THIS TIME. RFA #20 IV INTACT AND PATENT OF FLUSHING. PT HAS NO CONCERNS AT THIS TIME. PT UNABLE TO AMBULATE D/T PAIN IN L LEG. BELONGINGS SIGNED AND IN CHART. ADMISSION INTERVIEW DONE. PT'S SKIN ASSESS, SKIN ISSUE PHOTO TAKEN AND FILED. COMMERCIAL ACCOUNT EXECUTIVE DR LEAVITT NOTIFIED OF ADMISSION. AWAITING ORDERS. BED IN LOCKED/LOWEST POSITION. CALL LIGHT IN REACH. WILL CONT TO MONITOR.
[2018-02-12 17:40] VITALS: BP 92/53
[2018-02-12] MEDS: RIVAROXABAN 10 MG TABLET PO SCH (18:28)
--- NOTE | 2018-02-12 19:35 | NUR ---
RN NOTES PATIENT ENDORSED FOR CONTINUITY OF CARE. NO ACUTE CHANGES WITHIN THE SHIFT. NOT ON ANY FORM OF DISTRESS. ALL NURSING NEEDS ATTENDED AND MET. SAFETY AND ASPIRATION PRECAUTIONS KEPT IN PLACE ALL THE TIME. BED LOW AND LOCKED POSITION. CALL LIGHT WITHIN EASY REACH
[2018-02-12 20:00] VITALS: BP 116/67
--- NOTE | 2018-02-12 20:15 | NUR ---
RN OPENING NOTES REPORT RECEIVED FROM GLEN RN. PATIENT A/A/O X4, ABLE TO MAKE NEEDS KNOWN. BREATHING EVEN & UNLABORED, TOLERATING O2 @ 2LPM VIA NC. DENIES ANY SOB OR DIFFICULTY BREATHING. RADIAL PULSES PRESENT. RIGHT FOREARM IV #22 INTACT & PATENT W/ DRESSING CDI, SALINE LOCKED. IRVERA CATH DRAINING YELLOW URINE. LEFT LOWER EXTREMITY DRESSING CLEAN & DRY. DENIES ANY PAIN OR DISCOMFORT @ THIS TIME. SAFETY MEASURES IN PLACE W/ SIDE RAILS UP & BED LOCKED IN LOWEST POSITION. INSTRUCTED TO USE CALL LIGHT FOR ASSISTANCE. WILL CONTINUE TO MONITOR.
[2018-02-12] MEDS: oxyCODONE IR immediate release 5 MG PO PRN (20:57)
[2018-02-12] MEDS: MAG HYDROX/AL HYDROX/SIMETH 30 ML UDC PO PRN (21:00)
[2018-02-13] MEDS: ACETAMINOPHEN 325 MG TABLET PO PRN ×2 (00:19→13:39)
[2018-02-13 04:00] VITALS: BP 115/53
[2018-02-13] MEDS ORDERED: PANTOPRAZOLE 40 MG TABLET.DR PO SCH ×3 (07:30→11:30)
[2018-02-13 08:00] VITALS: BP 111/66
--- NOTE | 2018-02-13 08:00 | NUR ---
MS RN OPENING NOTES PATIENT A/A/O X4, ABLE TO MAKE NEEDS KNOWN. BREATHING EVEN & UNLABORED, TOLERATING O2 @ 2LPM VIA NC. DENIES ANY SOB.RADIAL PULSES PRESENT. RIGHT FOREARM IV #22 INTACT & PATENT W/ DRESSING CDI, SALINE LOCKED. RIVERA CATH DRAINING YELLOW URINE. LEFT LOWER EXTREMITY DRESSING CLEAN & DRY. DENIES ANY PAIN OR DISCOMFORT @ THIS TIME. SAFETY MEASURES IN PLACE W/ SIDE RAILS UP & BED LOCKED IN LOWEST POSITION. INSTRUCTED TO USE CALL LIGHT FOR ASSISTANCE. WILL CONTINUE TO MONITOR.
[2018-02-13] MEDS: oxyCODONE IR immediate release 5 MG PO PRN (08:34)
[2018-02-13] MEDS ORDERED: RIVAROXABAN 10 MG TABLET PO SCH (11:30)
[2018-02-13] MEDS ORDERED: PROGESTERONE,MICRONIZED 100 MG CAPSULE PO SCH (11:30)
[2018-02-13] MEDS ORDERED: FLUTICASONE/SALMETEROL DISKUS IH PRN (11:30)
[2018-02-13] MEDS ORDERED: GABAPENTIN 300 MG CAPSULE PO PRN (11:30)
[2018-02-13] MEDS ORDERED: methylPREDNISolone DOSPAK(4MG) 1 PACK TAB.DS.PK PO SCH (11:30)
[2018-02-13] MEDS ORDERED: LEVOTHYROXINE SODIUM 75 MCG TABLET PO SCH (11:30)
[2018-02-13] MEDS ORDERED: FLUTICASONE PROPIONATE 16 GM BOTTLE NS PRN (11:30)
[2018-02-13] MEDS ORDERED: IBUPROFEN 800 MG TABLET PO PRN (11:30)
[2018-02-13] MEDS ORDERED: ACETAMINOPHEN 325 MG TABLET PO PRN (11:30)
[2018-02-13 12:00] VITALS: BP 116/68
[2018-02-13] MEDS ORDERED: predniSONE 20 MG TABLET PO ONE (12:00)
[2018-02-13] MEDS ORDERED: MONTELUKAST SODIUM (10MG) 10 MG TABLET PO SCH (12:05)
[2018-02-13] MEDS ORDERED: ALBUTEROL FS 2.5 MG/0.5 ML VIAL.NEB NEB PRN (13:30)
[2018-02-13 16:00] VITALS: BP 120/74
[2018-02-13] MEDS: RIVAROXABAN 10 MG TABLET PO SCH (17:20)
[2018-02-13] MEDS: MAG HYDROX/AL HYDROX/SIMETH 30 ML UDC PO PRN (17:27)
--- NOTE | 2018-02-13 18:34 | NUR ---
RN NOTES PT LEFT FOOT DRESSING SATURATED. DRESSING REINFORCED, HOLLAND BANDAGE REAPPLIED. PT REFUSED WOUND PICTURES DUE TO PAIN DURING INITIAL REMOVAL OF SATURATED DRESSING. F/U WITH PT PERFORMED PRIOR TO DISCHARGE, HOWEVER PT CONTINUES TO REFUSE WOUND PICTURES STATING "IM LEAVING FOR TRANSFER, I DONT WANT ANY PHOTOS". RN ASSIGNED TO PT TO BE NOTIFIED.
--- NOTE | 2018-02-13 18:35 | NUR ---
MS CERTIFIED PROFESSIONAL ERGONOMIST NOTES PATIENT DISCHARGE TO [facility] WITH STABLE VITAL SIGNS, NO ACUTE DISTRESS NOTED. BREATHING UNLABORED. DISCHARGE INSTRUCTIONS GIVEN TO THE PATIENT, VERBALIZED UNDERSTANDING. RIVERA CATHETER REMOVED, PATIENT STRONGLY REFUSED TO HAVE IT, PRODUCTION CLERK PATRICIA LEAVITT NOTIFIED, REPORT GIVEN TO BONITA HANNA OF [facility]. ALL BELONGING ACCOUNTED FOR. LEFT ANKLE DRESSING CLEAN DRY AND INTACT. PICKED UP BY AMBULANCE IN A GURNEY ACCOMPANIED BY 2 EMT PERSONNEL AND SON IN STABLE CONDITION.
== END 2018-02-13 18:20 | DRG 561 ==
LOC: ER 08:41 → MEDSG1 16:56
PROVIDERS: ADMIT Nurse Practitioner Acute Care; ATTEND Nurse Practitioner Acute Care
DX: T84.84XA Pain due to internal orthopedic prosthetic devices, implants and grafts, initial encounter (principal); Y92.129 Unspecified place in nursing home as the place of occurrence of the external cause; J20.9 Acute bronchitis, unspecified; G90.8 Other disorders of autonomic nervous system; E03.9 Hypothyroidism, unspecified; F17.200 Nicotine dependence, unspecified, uncomplicated; M19.90 Unspecified osteoarthritis, unspecified site; Z88.8 Allergy status to other drugs, medicaments and biological substances; Z88.5 Allergy status to narcotic agent; Z98.890 Other specified postprocedural states; Z79.899 Other long term (current) drug therapy; M25.572 Pain in left ankle and joints of left foot; M96.672 Fracture of tibia or fibula following insertion of orthopedic implant, joint prosthesis, or bone plate, left leg; Y83.9 Surgical procedure, unspecified as the cause of abnormal reaction of the patient, or of later complication, without mention of misadventure at the time of the procedure; Y92.89 Other specified places as the place of occurrence of the external cause; K21.9 Gastro-esophageal reflux disease without esophagitis; K59.00 Constipation, unspecified
CPT/HCPCS: 36415; 71045-TC; 80048-TC; 80076-TC; 81000-TC; 83690-TC; 85025-TC; 87081-TC; 87086-TC; A4217; A4606; A6402; G0378; J2270; J2405; J2765; J7030; J7040; Z7610